=== PATIENT | female | born 1955 ===

== ENCOUNTER 2017-03-17 13:59 | Inpatient (IN) ==
[2017-03-17] MEDS ORDERED: ONDANSETRON 4 MG/2 ML VIAL IV STA (14:49)
[2017-03-17] MEDS ORDERED: ONDANSETRON 4 MG/2 ML VIAL ONE (15:04)
[2017-03-17] MEDS ORDERED: HYDROmorphone 2 MG/1 ML VIAL ONE (15:15)
[2017-03-17] MEDS ORDERED: HYDROmorphone 2 MG/1 ML VIAL IV STA (15:56)
[2017-03-17 16:19] LABS: Basophils # 0.1 10*3/uL (0.0-0.2); Basophils % 0.3 % (0.0-0.8); Hematocrit 50.3 VOL% (35.7-47.0); Hemoglobin 16.5 GM/DL (12.0-16.0); Immature Granulocytes % 0.5 %; Immature Granulocytes Absolute 0.07 #; Lymphocytes % 6.4 % (21.3-54.2); Mean Corpuscular HGB Conc 32.8 GM/DL (32-36); Mean Corpuscular Hemoglobin 28 PG (27-34); Mean Corpuscular Volume 84.4 FL (87-102); Mean Platelet Volume 10.2 FL (9.6-12.0); Monocytes # 0.6 10*3/uL (0.11-0.8); Neutrophils # 13.3 10*3/uL (1.4-7.4); Neutrophils % 88.8 % (38.7-73.9); Platelet Count 313 T/CUMM (130-400); Red Blood Count 5.96 MC/CUMM (3.8-5.5); Red Cell Distribution Width 14.7 % (9.3-17.3); White Blood Count 14.9 T/CUMM (4-12)
[2017-03-17 16:36] LABS: Apearance,Urine CLEAR (Clear); Bacteria,Urine Occasional /HPF (Few); Bilirubin,Urine Negative (Negative); Blood, Urine Negative (Negative); Glucose,Urine (UA) Negative (Negative); Ketones,Urine 5 mg/dL (Negative); Nitrite,Urine Negative (Negative); Protein,Urine Negative; RBC,Urine 2 /HPF (0-4); Urine Color Yellow (Yellow); Urine Specific Gravity 1.011 (1.001-1.035); Urine Urobilinogen < 2.0 EU/DL (0.2-1.0); WBC,Urine 2 /HPF (0-6)
[2017-03-17 16:37] LABS: Albumin 2.4 G/DL (3.4-5.0); Bilirubin,Total 1.4 MG/DL (0.2-1.0); Calcium 8.6 MG/DL (8.5-10.1); Magnesium 1.6 MG/DL (1.8-2.4); Potassium 4.5 MMOL/L (3.5-5.1); Total Protein 6.3 G/DL (6.4-8.3)
[2017-03-17] MEDS ORDERED: cefOXitin 2,000 MG in SYRINGE 1 EACH IV ONE (17:12)
[2017-03-17] MEDS ORDERED: ONDANSETRON 4 MG/2 ML VIAL IV PRN (21:32)
[2017-03-17] MEDS ORDERED: PROMETHAZINE 25 MG/1 ML VIAL IM PRN (21:32)
[2017-03-17] MEDS: LACTATED RINGERS 1,000 ML IV SCH (21:49)
[2017-03-17] MEDS ORDERED: MIDAZOLAM 2 MG/2 ML VIAL ONE (22:13)
[2017-03-17] MEDS ORDERED: fentaNYL 100 MCG/2 ML VIAL ONE ×2 (22:13)
[2017-03-17] MEDS ORDERED: SEVOFLURANE 1 UNIT/15 MINUTE INH ONE (22:13)
[2017-03-17] MEDS ORDERED: ETOMIDATE 20 MG/10 ML VIAL IV ONE (22:14)
[2017-03-17] MEDS ORDERED: SUCCINYLCHOLINE 200 MG/10 ML VIAL ONE (22:14)
[2017-03-17] MEDS ORDERED: ACETAMINOPHEN 1,000 MG/100 ML VIAL IV ONE (22:14)
[2017-03-17] MEDS ORDERED: MINERAL OIL/PETROLATUM OPH OINT 3.5 GM TUBE ONE (22:14)
[2017-03-17] MEDS ORDERED: LACTATED RINGERS 2,000 ML IV ONE (22:14)
[2017-03-17] MEDS ORDERED: ROCURONIUM 100 MG/10 ML VIAL IV ONE (22:14)
[2017-03-17 22:16] LABS: Basophils # 0.1 10*3/uL (0.0-0.2); Basophils % 0.6 % (0.0-0.8); Hematocrit 50.8 VOL% (35.7-47.0); Hemoglobin 16.2 GM/DL (12.0-16.0); Immature Granulocytes % 0.3 %; Immature Granulocytes Absolute 0.03 #; Lymphocytes # 2.3 10*3/uL (1.4-4.0); Lymphocytes % 25.6 % (21.3-54.2); Mean Corpuscular HGB Conc 31.9 GM/DL (32-36); Mean Corpuscular Hemoglobin 27 PG (27-34); Mean Corpuscular Volume 85.8 FL (87-102); Mean Platelet Volume 10.1 FL (9.6-12.0); Monocytes # 0.3 10*3/uL (0.11-0.8); Monocytes % 3.2 % (1.7-12.7); Neutrophils # 6.4 10*3/uL (1.4-7.4); Neutrophils % 70.3 % (38.7-73.9); Platelet Count 240 T/CUMM (130-400); Red Blood Count 5.92 MC/CUMM (3.8-5.5); Red Cell Distribution Width 14.8 % (9.3-17.3); White Blood Count 9.1 T/CUMM (4-12)
[2017-03-17 22:22] LABS: ABG Base Excess -8.8 MMOL/L (-2.5-2.5); ABG HCO3 17.5 MMOL/L (20-26); ABG Oxygen Saturation 98.6 % (95-100); ABG PCO2 49.8 MM HG (35-48); ABG TCO2 17.4 MMOL/L (23-27)
[2017-03-17 22:26] LABS: ABG PH 7.209 (7.35-7.45)
[2017-03-17 22:39] LABS: Calcium 8.1 MG/DL (8.5-10.1); Osmolality,Calculated 289.8 MOS/KG (273-304); Potassium 5.3 MMOL/L (3.5-5.1)
[2017-03-17 22:48] LABS: Platelet Estimate Normal
[2017-03-17] MEDS: HYDROmorphone 2 MG/1 ML VIAL IV PRN (22:51)
[2017-03-17] MEDS: PROPOFOL 1,000 MG/100 ML BOTTLE IV SCH (23:39)
[2017-03-18 02:25] LABS: ABG Base Excess -7.2 MMOL/L (-2.5-2.5); ABG HCO3 18.7 MMOL/L (20-26); ABG Oxygen Saturation 98.2 % (95-100); ABG PCO2 42.6 MM HG (35-48); ABG PH 7.273 (7.35-7.45); Allen Test Positive; Pt O2 Delivery Device Ventilator
[2017-03-18] MEDS ORDERED: SODIUM CHLORIDE 0.9% 1,000 ML IV ONE (02:33)
[2017-03-18] MEDS: LACTATED RINGERS 1,000 ML IV SCH ×5 (03:44→20:31)
[2017-03-18 06:45] LABS: Osmolality,Calculated 262.4 MOS/KG (273-304); Potassium 4.7 MMOL/L (3.5-5.1)
[2017-03-18] MEDS ORDERED: SODIUM CHLORIDE 0.9% 2,000 ML IV ONE (06:58)
[2017-03-18 06:59] LABS: Calcium 5.3 MG/DL (8.5-10.1)
[2017-03-18] MEDS: PROPOFOL 1,000 MG/100 ML BOTTLE IV SCH ×3 (07:34→23:56)
[2017-03-18 07:43] LABS: Basophils # 0.1 10*3/uL (0.0-0.2); Basophils % 0.4 % (0.0-0.8); Eosinophils % 0.1 % (0.00-10.9); Hematocrit 45.5 VOL% (35.7-47.0); Hemoglobin 14.8 GM/DL (12.0-16.0); Immature Granulocytes % 0.4 %; Immature Granulocytes Absolute 0.05 #; Lymphocytes # 1.6 10*3/uL (1.4-4.0); Lymphocytes % 13.9 % (21.3-54.2); Mean Corpuscular HGB Conc 32.5 GM/DL (32-36); Mean Corpuscular Hemoglobin 28 PG (27-34); Mean Corpuscular Volume 84.4 FL (87-102); Mean Platelet Volume 10.1 FL (9.6-12.0); Monocytes # 0.6 10*3/uL (0.11-0.8); Monocytes % 5.4 % (1.7-12.7); Neutrophils # 8.9 10*3/uL (1.4-7.4); Neutrophils % 79.8 % (38.7-73.9); Red Blood Count 5.39 MC/CUMM (3.8-5.5); Red Cell Distribution Width 15.1 % (9.3-17.3); White Blood Count 11.1 T/CUMM (4-12)
[2017-03-18 07:48] LABS: Platelet Count 161 T/CUMM (130-400)
[2017-03-18 07:57] LABS: Allen Test Positive; Pt O2 Delivery Device Ventilator
[2017-03-18 07:59] LABS: ABG Base Excess -4.8 MMOL/L (-2.5-2.5); ABG HCO3 20.5 MMOL/L (20-26); ABG Oxygen Saturation 98.7 % (95-100); ABG PCO2 39.1 MM HG (35-48); ABG PH 7.332 (7.35-7.45)
[2017-03-18 08:01] LABS: Hypochromasia 1+
[2017-03-18 08:02] LABS: Platelet Estimate Adequate
[2017-03-18] MEDS ORDERED: INFLUENZA VIRUS VACCINE 0.5 ML SYRINGE IM ONE (09:00)
[2017-03-18] MEDS: DIGOXIN 0.25 MG TABLET PO SCH (11:28)
[2017-03-18] MEDS: VERAPAMIL 120 MG TABLET PO SCH (11:29)
[2017-03-18] MEDS: CITALOPRAM 20 MG TABLET PO SCH (11:29)
[2017-03-18] MEDS: PANTOPRAZOLE 40 MG VIAL IV SCH (11:30)
[2017-03-18] MEDS ORDERED: CALCIUM GLUCONATE 2,000 MG in SODIUM CHLORIDE 0.9% 100 ML IV ONE (12:30)
[2017-03-18] MEDS: HYDROmorphone 2 MG/1 ML VIAL IV PRN (15:01)
[2017-03-19 02:45] LABS: ABG Base Excess -5.3 MMOL/L (-2.5-2.5); ABG HCO3 20.2 MMOL/L (20-26); ABG Oxygen Saturation 98.1 % (95-100); ABG TCO2 17.5 MMOL/L (23-27); Allen Test Positive; Pt O2 Delivery Device Ventilator
[2017-03-19 04:33] LABS: Basophils % 0.2 % (0.0-0.8); Eosinophils % 0.1 % (0.00-10.9); Hematocrit 37.6 VOL% (35.7-47.0); Hemoglobin 12.1 GM/DL (12.0-16.0); Immature Granulocytes % 0.5 %; Immature Granulocytes Absolute 0.05 #; Lymphocytes # 1.1 10*3/uL (1.4-4.0); Lymphocytes % 10.3 % (21.3-54.2); Mean Corpuscular HGB Conc 32.2 GM/DL (32-36); Mean Corpuscular Hemoglobin 27 PG (27-34); Mean Corpuscular Volume 83.7 FL (87-102); Mean Platelet Volume 11.2 FL (9.6-12.0); Monocytes # 0.7 10*3/uL (0.11-0.8); Monocytes % 6.2 % (1.7-12.7); Neutrophils # 8.9 10*3/uL (1.4-7.4); Neutrophils % 82.7 % (38.7-73.9); Platelet Count 109 T/CUMM (130-400); Red Blood Count 4.49 MC/CUMM (3.8-5.5); Red Cell Distribution Width 15.3 % (9.3-17.3); White Blood Count 10.7 T/CUMM (4-12)
[2017-03-19] MEDS: LACTATED RINGERS 1,000 ML IV SCH (05:02)
[2017-03-19 05:07] LABS: Calcium 7.8 MG/DL (8.5-10.1); Magnesium 1.7 MG/DL (1.8-2.4); Osmolality,Calculated 296.7 MOS/KG (273-304); Potassium 5.1 MMOL/L (3.5-5.1)
[2017-03-19 05:45] LABS: Band Neutrophils 10 % (0-10); Lymphocytes 8 % (20-55); Myelocytes 1 %; Segmented Neutrophils 76 % (50-85); Total Cells Counted 100
[2017-03-19 05:46] LABS: Platelet Estimate Adequate
[2017-03-19] MEDS: PROPOFOL 1,000 MG/100 ML BOTTLE IV SCH ×3 (06:11→23:06)
[2017-03-19] MEDS ORDERED: MAGNESIUM SULF RIDER 4 GM in PREMIX 1 EACH IV PRN (07:05)
[2017-03-19] MEDS ORDERED: MAGNESIUM SULF RIDER 2 GM in PREMIX 1 EACH IV PRN (07:05)
[2017-03-19] MEDS ORDERED: PIPERACILLIN/TAZOBACTAM 3,375 MG in SODIUM CHLORIDE 0.9% 100 ML IV SCH (09:00)
[2017-03-19] MEDS: HEPARIN 5,000 UNIT/1 ML VIAL SUBCUT SCH ×2 (09:34→15:09)
[2017-03-19] MEDS: DIGOXIN 0.25 MG TABLET PO SCH (09:35)
[2017-03-19] MEDS: CITALOPRAM 20 MG TABLET PO SCH (09:36)
[2017-03-19] MEDS: VERAPAMIL 120 MG TABLET PO SCH (09:36)
[2017-03-19] MEDS: PIPERACILLIN/TAZOBACTAM 3,375 MG in SODIUM CHLORIDE 0.9% 100 ML IV SCH ×2 (09:37→22:00)
[2017-03-19] MEDS: DEXT 5% NACL 0.45% KCL 40 MEQ 40 MEQ/1,000 ML BAG IV SCH ×2 (09:53→17:44)
[2017-03-19] MEDS: PANTOPRAZOLE 40 MG VIAL IV SCH (09:53)
[2017-03-19] MEDS ORDERED: ceFAZolin 1,000 MG VIAL ONE (10:04)
[2017-03-19] MEDS: HYDROmorphone 2 MG/1 ML VIAL IV PRN ×2 (15:03→20:54)
[2017-03-20] MEDS: HEPARIN 5,000 UNIT/1 ML VIAL SUBCUT SCH ×4 (00:28→22:44)
[2017-03-20] MEDS: DEXT 5% NACL 0.45% KCL 40 MEQ 40 MEQ/1,000 ML BAG IV SCH (01:51)
[2017-03-20 03:06] LABS: ABG Base Excess -4.2 MMOL/L (-2.5-2.5); ABG PCO2 45.3 MM HG (35-48); ABG PH 7.305 (7.35-7.45); ABG PO2 111.6 MM HG (80-95); ABG TCO2 23.4 MMOL/L (23-27); Allen Test Positive
[2017-03-20 04:06] LABS: Basophils % 0.3 % (0.0-0.8); Eosinophils # 0.1 10*3/uL (0.0-0.87); Eosinophils % 0.5 % (0.00-10.9); Hemoglobin 11.2 GM/DL (12.0-16.0); Immature Granulocytes % 0.8 %; Immature Granulocytes Absolute 0.07 #; Lymphocytes % 10.3 % (21.3-54.2); Mean Corpuscular HGB Conc 32.9 GM/DL (32-36); Mean Corpuscular Hemoglobin 28 PG (27-34); Mean Platelet Volume 11.8 FL (9.6-12.0); Monocytes # 0.7 10*3/uL (0.11-0.8); Monocytes % 7.2 % (1.7-12.7); Neutrophils # 7.5 10*3/uL (1.4-7.4); Neutrophils % 80.9 % (38.7-73.9); Red Blood Count 4.05 MC/CUMM (3.8-5.5); Red Cell Distribution Width 15.4 % (9.3-17.3); White Blood Count 9.2 T/CUMM (4-12)
[2017-03-20 04:32] LABS: Platelet Count 89 T/CUMM (130-400)
[2017-03-20 04:44] LABS: Magnesium 2.2 MG/DL (1.8-2.4); Osmolality,Calculated 294.8 MOS/KG (273-304); Potassium 5.5 MMOL/L (3.5-5.1)
[2017-03-20 05:49] LABS: Burr Cells Slight; Hypochromasia 1+; Lymphocytes 7 % (20-55); Segmented Neutrophils 83 % (50-85); Total Cells Counted 100
[2017-03-20 05:50] LABS: Microcytosis 1+; Platelet Estimate Decreased
[2017-03-20] MEDS: DEXTROSE 5% NACL 0.45% 1,000 ML IV SCH ×3 (08:50→16:50)
[2017-03-20] MEDS: VERAPAMIL 120 MG TABLET PO SCH (08:51)
[2017-03-20] MEDS: PIPERACILLIN/TAZOBACTAM 3,375 MG in SODIUM CHLORIDE 0.9% 100 ML IV SCH ×2 (08:51→20:49)
[2017-03-20] MEDS: DIGOXIN 0.25 MG TABLET PO SCH (08:51)
[2017-03-20] MEDS: CITALOPRAM 20 MG TABLET PO SCH (08:51)
[2017-03-20] MEDS: PANTOPRAZOLE 40 MG VIAL IV SCH (08:51)
[2017-03-20] MEDS: HYDROmorphone 2 MG/1 ML VIAL IV PRN ×3 (11:11→19:44)
[2017-03-20 12:56] LABS: Calcium 7.6 MG/DL (8.5-10.1); Osmolality,Calculated 296.7 MOS/KG (273-304); Potassium 5.3 MMOL/L (3.5-5.1)
[2017-03-20] MEDS: ALBUTEROL 2.5 MG/3 ML NEB RESP TX SCH (15:36)
[2017-03-21] MEDS: ALBUTEROL 2.5 MG/3 ML NEB RESP TX SCH ×3 (00:04→14:21)
[2017-03-21] MEDS: HYDROmorphone 2 MG/1 ML VIAL IV PRN ×5 (01:17→23:13)
[2017-03-21 05:49] LABS: Basophils # 0.1 10*3/uL (0.0-0.2); Basophils % 0.5 % (0.0-0.8); Eosinophils # 0.3 10*3/uL (0.0-0.87); Eosinophils % 2.4 % (0.00-10.9); Hematocrit 31.7 VOL% (35.7-47.0); Hemoglobin 10.5 GM/DL (12.0-16.0); Immature Granulocytes % 0.9 %; Immature Granulocytes Absolute 0.09 #; Lymphocytes # 1.2 10*3/uL (1.4-4.0); Lymphocytes % 11.7 % (21.3-54.2); Mean Corpuscular HGB Conc 33.1 GM/DL (32-36); Mean Corpuscular Hemoglobin 27 PG (27-34); Mean Corpuscular Volume 82.8 FL (87-102); Mean Platelet Volume 12.6 FL (9.6-12.0); Monocytes # 1.2 10*3/uL (0.11-0.8); Monocytes % 11.7 % (1.7-12.7); NRBC # 0.05 10*3/uL; Neutrophils # 7.6 10*3/uL (1.4-7.4); Neutrophils % 72.8 % (38.7-73.9); Red Blood Count 3.83 MC/CUMM (3.8-5.5); Red Cell Distribution Width 15.6 % (9.3-17.3); White Blood Count 10.5 T/CUMM (4-12)
[2017-03-21 06:13] LABS: Platelet Count 83 T/CUMM (130-400)
[2017-03-21 06:42] LABS: Osmolality,Calculated 295.7 MOS/KG (273-304); Potassium 5.6 MMOL/L (3.5-5.1)
[2017-03-21] MEDS: DEXTROSE 5% NACL 0.45% 1,000 ML IV SCH ×3 (06:50→19:10)
[2017-03-21 08:03] LABS: Burr Cells Slight; Giant Platelets Few; Hypochromasia 1+; Microcytosis Slight; Platelet Estimate Decreased
[2017-03-21] MEDS: VERAPAMIL 120 MG TABLET PO SCH (08:26)
[2017-03-21] MEDS: CITALOPRAM 20 MG TABLET PO SCH (08:26)
[2017-03-21] MEDS: DIGOXIN 0.25 MG TABLET PO SCH (08:26)
[2017-03-21] MEDS: PANTOPRAZOLE 40 MG VIAL IV SCH (09:26)
[2017-03-21] MEDS: HEPARIN 5,000 UNIT/1 ML VIAL SUBCUT SCH ×3 (09:26→23:14)
[2017-03-21] MEDS: PIPERACILLIN/TAZOBACTAM 3,375 MG in SODIUM CHLORIDE 0.9% 100 ML IV SCH ×2 (09:27→20:50)
[2017-03-22] MEDS: ALBUTEROL 2.5 MG/3 ML NEB RESP TX SCH ×3 (00:43→15:58)
[2017-03-22 02:44] LABS: Basophils % 0.3 % (0.0-0.8); Eosinophils # 0.1 10*3/uL (0.0-0.87); Eosinophils % 0.9 % (0.00-10.9); Hematocrit 33.2 VOL% (35.7-47.0); Hemoglobin 10.9 GM/DL (12.0-16.0); Immature Granulocytes % 1.3 %; Immature Granulocytes Absolute 0.18 #; Lymphocytes # 1.3 10*3/uL (1.4-4.0); Mean Corpuscular HGB Conc 32.8 GM/DL (32-36); Mean Corpuscular Hemoglobin 27 PG (27-34); Mean Corpuscular Volume 82.4 FL (87-102); Mean Platelet Volume 12.5 FL (9.6-12.0); Monocytes # 1.8 10*3/uL (0.11-0.8); Monocytes % 12.9 % (1.7-12.7); NRBC # 0.04 10*3/uL; Neutrophils # 10.5 10*3/uL (1.4-7.4); Neutrophils % 75.6 % (38.7-73.9); Platelet Count 103 T/CUMM (130-400); Red Blood Count 4.03 MC/CUMM (3.8-5.5); Red Cell Distribution Width 15.6 % (9.3-17.3); White Blood Count 13.8 T/CUMM (4-12)
[2017-03-22 03:07] LABS: Calcium 7.5 MG/DL (8.5-10.1); Magnesium 1.8 MG/DL (1.8-2.4); Osmolality,Calculated 298.6 MOS/KG (273-304); Potassium 4.6 MMOL/L (3.5-5.1)
[2017-03-22] MEDS: DEXTROSE 5% NACL 0.45% 1,000 ML IV SCH ×2 (07:19→19:47)
[2017-03-22] MEDS: PANTOPRAZOLE 40 MG VIAL IV SCH (09:36)
[2017-03-22] MEDS: HEPARIN 5,000 UNIT/1 ML VIAL SUBCUT SCH ×2 (09:36→16:28)
[2017-03-22] MEDS: CITALOPRAM 20 MG TABLET PO SCH (09:40)
[2017-03-22] MEDS: VERAPAMIL 120 MG TABLET PO SCH (09:54)
[2017-03-22] MEDS: FUROSEMIDE 40 MG TABLET PO SCH (09:55)
[2017-03-22] MEDS: DIGOXIN 0.25 MG TABLET PO SCH (09:55)
[2017-03-22] MEDS ORDERED: cloNIDine 0.1 MG/24 HR PATCH TRANSDERM SCH (10:00)
[2017-03-22] MEDS: PIPERACILLIN/TAZOBACTAM 3,375 MG in SODIUM CHLORIDE 0.9% 100 ML IV SCH ×2 (10:18→21:47)
[2017-03-23] MEDS: ALBUTEROL 2.5 MG/3 ML NEB RESP TX SCH ×4 (00:30→23:00)
[2017-03-23] MEDS: DEXTROSE 5% NACL 0.45% 1,000 ML IV SCH ×3 (01:50→20:15)
[2017-03-23] MEDS: HEPARIN 5,000 UNIT/1 ML VIAL SUBCUT SCH ×4 (01:56→15:13)
[2017-03-23 08:50] LABS: Basophils # 0.1 10*3/uL (0.0-0.2); Basophils % 0.5 % (0.0-0.8); Eosinophils # 0.2 10*3/uL (0.0-0.87); Eosinophils % 1.5 % (0.00-10.9); Immature Granulocytes % 2.5 %; Immature Granulocytes Absolute 0.33 #; Lymphocytes # 2.1 10*3/uL (1.4-4.0); Mean Corpuscular HGB Conc 32.4 GM/DL (32-36); Mean Corpuscular Hemoglobin 27 PG (27-34); Mean Corpuscular Volume 83.3 FL (87-102); Mean Platelet Volume 12.1 FL (9.6-12.0); Monocytes # 1.7 10*3/uL (0.11-0.8); Monocytes % 12.7 % (1.7-12.7); NRBC # 0.05 10*3/uL; Neutrophils # 8.8 10*3/uL (1.4-7.4); Neutrophils % 66.8 % (38.7-73.9); Platelet Count 123 T/CUMM (130-400); Red Blood Count 4.44 MC/CUMM (3.8-5.5); Red Cell Distribution Width 15.9 % (9.3-17.3); White Blood Count 13.2 T/CUMM (4-12)
[2017-03-23] MEDS: PIPERACILLIN/TAZOBACTAM 3,375 MG in SODIUM CHLORIDE 0.9% 100 ML IV SCH ×2 (09:06→21:00)
[2017-03-23] MEDS: PANTOPRAZOLE 40 MG VIAL IV SCH (09:06)
[2017-03-23] MEDS: DIGOXIN 0.25 MG TABLET PO SCH (09:07)
[2017-03-23] MEDS: FUROSEMIDE 40 MG TABLET PO SCH (09:07)
[2017-03-23] MEDS: CITALOPRAM 20 MG TABLET PO SCH (09:07)
[2017-03-23] MEDS: VERAPAMIL 120 MG TABLET PO SCH (09:07)
[2017-03-23 09:20] LABS: Eosinophils 3 % (0-10); Giant Platelets Few; Hypochromasia 1+; Lymphocytes 18 % (20-55); Microcytosis Slight; Platelet Estimate Normal; Segmented Neutrophils 66 % (50-85); Total Cells Counted 100
[2017-03-23 09:33] LABS: Calcium 7.9 MG/DL (8.5-10.1); Potassium 4.8 MMOL/L (3.5-5.1)
[2017-03-24 06:05] LABS: Basophils # 0.1 10*3/uL (0.0-0.2); Basophils % 0.5 % (0.0-0.8); Eosinophils # 0.4 10*3/uL (0.0-0.87); Eosinophils % 3.2 % (0.00-10.9); Hemoglobin 10.5 GM/DL (12.0-16.0); Immature Granulocytes % 3.9 %; Immature Granulocytes Absolute 0.45 #; Lymphocytes # 2.2 10*3/uL (1.4-4.0); Lymphocytes % 18.5 % (21.3-54.2); Mean Corpuscular HGB Conc 32.8 GM/DL (32-36); Mean Corpuscular Hemoglobin 27 PG (27-34); Mean Corpuscular Volume 83.6 FL (87-102); Mean Platelet Volume 12.1 FL (9.6-12.0); Monocytes # 1.5 10*3/uL (0.11-0.8); Monocytes % 12.8 % (1.7-12.7); NRBC # 0.03 10*3/uL; Neutrophils # 7.1 10*3/uL (1.4-7.4); Neutrophils % 61.1 % (38.7-73.9); Platelet Count 124 T/CUMM (130-400); Red Blood Count 3.83 MC/CUMM (3.8-5.5); Red Cell Distribution Width 15.9 % (9.3-17.3); White Blood Count 11.6 T/CUMM (4-12)
[2017-03-24] MEDS: DEXTROSE 5% NACL 0.45% 1,000 ML IV SCH (06:15)
[2017-03-24 06:36] LABS: Band Neutrophils 1 % (0-10); Eosinophils 4 % (0-10); Hypochromasia 1+; Lymphocytes 17 % (20-55); Metamyelocytes 1 %; Nucleated Red Blood Cells 1 (0-5); Segmented Neutrophils 69 % (50-85); Total Cells Counted 100
[2017-03-24 06:37] LABS: Atypical Lymphocytes Few; Microcytosis Slight; Platelet Estimate Adequate
[2017-03-24] MEDS: ALBUTEROL 2.5 MG/3 ML NEB RESP TX SCH ×2 (07:08→14:04)
[2017-03-24] MEDS ORDERED: TUBERCULIN SKIN TEST 0.1 ML SYRINGE INTRADERM ONE (08:33)
[2017-03-24] MEDS: DIGOXIN 0.25 MG TABLET PO SCH (08:45)
[2017-03-24] MEDS: FUROSEMIDE 40 MG TABLET PO SCH (08:45)
[2017-03-24] MEDS: CITALOPRAM 20 MG TABLET PO SCH (08:46)
[2017-03-24] MEDS: VERAPAMIL 120 MG TABLET PO SCH (08:46)
[2017-03-24] MEDS: PANTOPRAZOLE 40 MG VIAL IV SCH (08:47)
[2017-03-24] MEDS: HEPARIN 5,000 UNIT/1 ML VIAL SUBCUT SCH ×3 (08:51→23:40)
[2017-03-24] MEDS: PIPERACILLIN/TAZOBACTAM 3,375 MG in SODIUM CHLORIDE 0.9% 100 ML IV SCH ×2 (08:53→21:28)
[2017-03-25] MEDS: ALBUTEROL 2.5 MG/3 ML NEB RESP TX SCH ×3 (00:28→14:13)
[2017-03-25 05:06] LABS: Calcium 7.5 MG/DL (8.5-10.1); Osmolality,Calculated 282.4 MOS/KG (273-304); Potassium 3.9 MMOL/L (3.5-5.1)
[2017-03-25] MEDS: DIGOXIN 0.25 MG TABLET PO SCH (08:45)
[2017-03-25] MEDS: CITALOPRAM 20 MG TABLET PO SCH (08:45)
[2017-03-25] MEDS: VERAPAMIL 120 MG TABLET PO SCH (08:45)
[2017-03-25] MEDS: FUROSEMIDE 40 MG TABLET PO SCH (08:46)
[2017-03-25] MEDS: HEPARIN 5,000 UNIT/1 ML VIAL SUBCUT SCH (08:47)
[2017-03-25] MEDS ORDERED: PANTOPRAZOLE 40 MG TABLET PO SCH (09:00)
[2017-03-25] MEDS: PIPERACILLIN/TAZOBACTAM 3,375 MG in SODIUM CHLORIDE 0.9% 100 ML IV SCH (09:15)
[2017-03-25 11:08] VITALS: BP 133/71
== END 2017-03-25 14:30 | disposition swing bed (61) | DRG 329 ==
LOC: EDBD → EDUNIT# → N.ED 13:59 → N.CC 17:53 → N.EDINP 21:17 → N.CC 21:50 → N.3E 03-20 12:50
PROVIDERS: ADMIT Surgery; ATTEND Surgery